=== PATIENT | female | born 1980 | race Caucasian/White ===

== ENCOUNTER 2019-10-02 11:27 | Outpatient (CLI) | payer BC ==
--- NOTE | 2019-10-02 11:45 | RAD ---
XR Chest Pa Lat STANDARD History: Cough Comparison: Radiograph 2016 Findings: Abnormal right middle lobe and lingular faint airspace opacities. No pneumothorax. No effus ion. No acute osseous abnormality. Impression: Faint right middle lobe and lingular airspace opacities can be seen with chronic infectio us processes which may be viral or mycobacterial in nature.
== END 2019-10-02 11:28 | disposition home or self-care (01) ==
LOC: BICRAD 11:27
PROVIDERS: ATTEND Specialist
DX: J43.8 Other emphysema (principal); R91.8 Other nonspecific abnormal finding of lung field
CPT/HCPCS: 71046

== ENCOUNTER 2019-11-10 15:44 | Outpatient (CLI) | payer BC ==
--- NOTE | 2019-11-10 15:58 | RAD ---
RADIOGRAPH CHEST 2 VIEW: DATE: 11/10/2019 TIME: 3:52 PM HISTORY: 39-year-old female with "other viral pneumonia." Recurrent cough COMPARISON: 10/02/2019 FINDINGS: The previously demonstrated faint right middle lobe infiltrate has improved slightly. The previously mentioned faint lingular infiltrate has completely or almost completely resolved. There is no new consolidation, pleural effusion, or pneumothorax. Cardiomediastinal silhouette is normal. IMPRESSION: Interval improvement in the previously mentioned faint infiltrates in the right middle lobe and lingu la. Currently, minimal, faint right middle lobe infiltrate remains.
== END 2019-11-10 15:45 | disposition home or self-care (01) ==
LOC: BICRAD 15:44
PROVIDERS: ATTEND Specialist
DX: J12.89 Other viral pneumonia (principal); R05 Cough; R91.8 Other nonspecific abnormal finding of lung field
CPT/HCPCS: 71046

== ENCOUNTER 2022-02-01 14:38 | Outpatient (CLI) | payer BC | END 2022-02-01 14:39 | disposition home or self-care (01) | LOC: ULT 14:38 | PROVIDERS: ATTEND Specialist | DX: N94.10 Unspecified dyspareunia (principal); N93.9 Abnormal uterine and vaginal bleeding, unspecified; R87.619 Unspecified abnormal cytological findings in specimens from cervix uteri; R93.89 Abnormal findings on diagnostic imaging of other specified body structures; N83.202 Unspecified ovarian cyst, left side; N83.201 Unspecified ovarian cyst, right side | CPT/HCPCS: 76856 ==